=== PATIENT | female | born 1950 | race Caucasian/White ===

== ENCOUNTER 2017-01-11 08:30 | Outpatient (RCR) | payer OTHER | END 2017-01-28 | disposition home or self-care (01) | LOC: PTY 08:30 | DX: M25.512 Pain in left shoulder (principal) | CPT/HCPCS: 97110; 97140; 97161; G0283 ==

== ENCOUNTER 2017-01-29 09:15 | Outpatient (RCR) | payer OTHER | END 2017-02-28 | disposition home or self-care (01) | LOC: PTY 09:15 | DX: M25.512 Pain in left shoulder (principal) | CPT/HCPCS: 97110; 97140; G0283 ==

== ENCOUNTER 2017-03-14 14:30 | Outpatient (RCR) | payer OTHER | END 2017-03-30 | disposition home or self-care (01) | LOC: PTY 14:30 | DX: M25.512 Pain in left shoulder (principal); M19.90 Unspecified osteoarthritis, unspecified site | CPT/HCPCS: 97110; 97140; G0283 ==

== ENCOUNTER 2017-04-05 15:15 | Outpatient (RCR) | payer OTHER | END 2017-04-30 | disposition home or self-care (01) | LOC: PTY 15:15 | DX: M25.512 Pain in left shoulder (principal); M19.90 Unspecified osteoarthritis, unspecified site; M54.2 Cervicalgia | CPT/HCPCS: 97110; 97140; G0283 ==